=== PATIENT | male | born 1975 | race Caucasian/White ===

== ENCOUNTER → 2019-05-08 16:30 | Outpatient (CLI) | payer OTHER, SELFPAY ==
--- NOTE | 2019-05-08 16:36 | DI.MRI.S_ITS ---
PROCEDURE: MR LUMBAR SPINE WO CON INDICATIONS: Low back and right leg radicular pain TECHNIQUE: Noncontrast sagittal T1 spin echo and T2 fast echo, sagittal STIR, axial T1 and T2 fast spin echo through the lumbar spine. In cases with scoliosis, additional coronal T2 fast spin echo may be performed. COMPARISON: None. FINDINGS: Image quality: Excellent. Alignment and Curvature: There is normal bony alignment. Bone Marrow: Marrow is of normal overall signal. No acute vertebral body compression fractures. Spinal Cord: Conus medullaris terminates at the T12-L1 level. Visualized cord demonstrates normal signal and size. Paraspinous Soft Tissues: No paravertebral masses. L1-L2: Preserved disc height and disc signal. There is mild posterior disc bulge. The central canal is mildly narrowed. No foraminal stenosis. No definitive nerve root impingement. L2-L3: Preserved disc height and disc signal. There is mild posterior disc bulge. The central canal is patent. No foraminal stenosis. No definitive nerve root impingement. L3-L4: Preserved disc height and disc signal. There is mild posterior disc bulge. The central canal is patent. No foraminal stenosis. No definitive nerve root impingement. L4-L5: Moderate loss of disc height and disc signal. There is diffuse posterior disc bulge and right posterior paramedian and lateral disc protrusion. The central canal is moderately narrowed. There is severe narrowing of the right lateral recess. Moderate right and mild left subarticular foraminal stenosis. There is right L5 nerve root impingement. L5-S1: Moderate loss of disc height and disc signal. There is diffuse posterior disc bulge and posterior central annular fissure. The central canal is mildly narrowed. Mild bilateral foraminal stenosis. There is no definitive nerve root impingement IMPRESSION: 1. Multilevel degenerative disc disease and facet arthropathy as described. 2. Moderate central canal stenosis at L4-L5, and mild central canal stenosis at L1-L2 and L5-S1. 3. Multilevel foraminal stenosis as described. 4. Severe narrowing of the right lateral recess at L4-L5 secondary to posterior lateral extruded disc. Dictated by: Reuben Marie M.D. on 05/09/2019 at 7:43 Approved by: Reuben Marie M.D. on 05/09/2019 at 17:49
== END ==
PROVIDERS: Visit Provider Nurse Practitioner Family
DX: M51.16 Intervertebral disc disorders with radiculopathy, lumbar region (principal); M47.26 Other spondylosis with radiculopathy, lumbar region; M48.061 Spinal stenosis, lumbar region without neurogenic claudication; M48.07 Spinal stenosis, lumbosacral region; G89.29 Other chronic pain
CPT/HCPCS: 72148